=== PATIENT | male | born 1975 | race Caucasian/White ===

== ENCOUNTER 2017-12-15 10:35 | Inpatient (IN) | payer OTHER ==
[~2017-12-15 10:35] MED LIST: CYCL10TA29 PO; HYDR-3078 PO; LOR5 PO; MELO-150 PO; OND4 PO; ONDA4TAB PO
--- NOTE | 2017-12-15 10:38 | ER Report ---
History and Physical Time Seen By MD: 10:37 HPI/ROS CHIEF COMPLAINT: Periumbilical abdominal pain HISTORY OF PRESENT ILLNESS: Patient is a 42-year-old male here with complaints of periumbilical abdominal pain which started approximately 7:30 this morning and has been constant since time of onset. Patient denies prior history of similar pain. Patient denies prior history of abdominal surgeries. He does admit to dysuria. He did pass a bowel movement which was normal this morning. Patient denies fevers, chills, chest pain, shortness breath, nausea or vomiting. He attempted to urinate at time of arrival but was unable to produce urine. Patient is afebrile time of evaluation and hemodynamically stable. REVIEW OF SYSTEMS: Constitutional: No fever, no chills. Eyes: No discharge. ENT: No sore throat. Cardiovascular: No chest pain, no palpitations. Respiratory: No cough, no shortness of breath. Gastrointestinal: + periumbilical abdominal pain, no vomiting. Genitourinary: + decreased UO Musculoskeletal: No back pain. Skin: No rashes. Neurological: No headache. Allergies: Coded Allergies: No Known Drug Allergies (Verified , 12/15/17) Home Meds Reported Medications Escitalopram Oxalate (LEXAPRO) 20 Mg Tablet, 10 MG PO QDAY, TAB 12/15/17 Discontinued Reported Medications Ondansetron Hcl (Zofran) 4 Mg Tab, 4 MG PO 09/19/11 Acetaminophen/Hydrocodone (Lortab 5/500) 5 Mg/500 Mg Tab, 1 TAB PO Q6H 09/19/11 Cyclobenzaprine Hcl (FLEXERIL (OR EQUIV)) 10 Mg Tab, 10 MG PO 09/19/11 Ondansetron (Zofran Odt) 4 Mg/Udtablet Tab.rapdis, 4 MG PO Q6-8H Y, #10 0 Refills 02/27/10 Hydrocodone Bit/Acetaminophen (Hydrocodone-Apap 5-500 Mg Tab) 1 Each Tablet, 1 EACH PO Q4-6H Y, 0 Refills 30/10 Meloxicam (Mobic) 15 Mg Tablet, 15 MG PO DAILY Y, 0 Refills 30/ Hx Smoking: Yes Hx Substance Use Disorder: No Hx Alcohol Use: No Constitutional Vital Sign - Last 24 Hours 12/15/17 12/15/17 10:38 11:04 Temp 98.0 Pulse 65 Resp 22 B/P (MAP) 132/68 Pulse Ox 96 O2 Delivery Room Air O2 Flow Rate 3.0 Physical Exam General Appearance: The patient is alert, has no immediate need for airway protection and no signs of toxicity. Moderate distress secondary to pain Eyes: Pupils equal and round no pallor or injection. ENT, Mouth: Mucous membranes are moist. Respiratory: There are no retractions, lungs are clear to auscultation. Cardiovascular: Regular rate and rhythm. Gastrointestinal: Abdomen is soft and + tender in the periumbilical distribution, no masses, bowel sounds normal. Neurological: No focal neurological deficits Skin: Warm and dry, no rashes. Musculoskeletal: Neck is supple non tender. Extremities are nontender, nonswollen and have full range of motion. DIFFERENTIAL DIAGNOSIS: After history and physical exam differential diagnosis was considered for abdominal pain including but not limited to appendicitis, cholecystitis, gastritis and urinary tract infection. Medical Decision Making Data Points Result Diagram: 12/15/17 1049 12/15/17 1049 Laboratory Hematology Test 12/15/17 10:49 12/15/17 11:57 Red Blood Count 5.27 M/uL (4.00-5.60) Mean Corpuscular Volume 90.3 fL (80.0-96.0) Mean Corpuscular Hemoglobin 32.1 pg (26.0-33.0) Mean Corpuscular Hemoglobin Concent 35.5 g/dL (32.0-36.0) Red Cell Distribution Width 13.5 % (11.5-14.5) Mean Platelet Volume 8.6 fL (7.2-11.1) Neutrophils (%) (Auto) 75.6 % (39.4-72.5) Lymphocytes (%) (Auto) 15.5 % (17.6-49.6) Monocytes (%) (Auto) 5.6 % (4.1-12.4) Eosinophils (%) (Auto) 2.7 % (0.4-6.7) Basophils (%) (Auto) 0.6 % (0.3-1.4) Nucleated RBC Relative Count (auto) 0.0 /100WBC Neutrophils # (Auto) 7.1 K/uL (2.0-7.4) Lymphocytes # (Auto) 1.4 K/uL (1.3-3.6) Monocytes # (Auto) 0.5 K/uL (0.3-1.0) Eosinophils # (Auto) 0.2 K/uL (0.0-0.5) Basophils # (Auto) 0.1 K/uL (0.0-0.1) Nucleated RBC Absolute Count (auto) 0.00 K/uL Peripheral Blood Smear No Y/N Sodium Level 139 mmol/L (137-145) Potassium Level 4.5 mmol/L (3.5-5.0) Chloride Level 104 mmol/L (98-107) Carbon Dioxide Level 25 mmol/L (22-30) Blood Urea Nitrogen 16 mg/dl (9-21) Creatinine 0.90 mg/dl (0.66-1.25) Glomerular Filtration Rate Calc > 60.0 Random Glucose 106 mg/dl (75-110) Lactate 1.1 mmol/L (0.7-2.1) Calcium Level 9.7 mg/dl (8.4-10.2) Total Bilirubin 0.7 mg/dl (0.2-1.3) Aspartate Amino Transf (AST/SGOT) 27 U/L (0-35) Alanine Aminotransferase (ALT/SGPT) 20 U/L (0-56) Alkaline Phosphatase 70 U/L (0-126) C-Reactive Protein < 0.5 mg/dl (<1.0) Total Protein 7.0 g/dl (6.3-8.2) Albumin 4.4 g/dl (3.5-5.0) Lipase 48 U/L (23-300) Urine Color Yellow Urine Clarity Clear Urine pH 6.0 pH (4.8-9.5) Urine Specific [place] 1.010 Urine Protein Negative mg/dL (NEGATIVE) Urine Glucose (UA) Negative mg/dL (NEGATIVE) Urine Ketones Negative mg/dL (NEGATIVE) Urine Blood Negative (NEGATIVE) Urine Nitrite Negative (NEGATIVE) Urine Bilirubin Negative (NEGATIVE) Urine Urobilinogen 0.2 mg/dL (0.2-1.9) Urine Leukocyte Esterase Negative (NEGATIVE) Urine RBC 1 /HPF (0-2/HPF) Urine WBC <1 /HPF (0-5/HPF) Urine Squamous Epithelial Cells None /LPF (</=FEW) Urine Bacteria Negative /HPF (NONE-FEW) Urine Mucus None /HPF (NONE-FEW) Chemistry Test 12/15/17 10:49 12/15/17 11:57 White Blood Count 9.3 k/uL (4.5-11.0) Red Blood Count 5.27 M/uL (4.00-5.60) Hemoglobin 16.9 g/dL (14.0-18.0) Hematocrit 47.6 % (42.0-52.0) Mean Corpuscular Volume 90.3 fL (80.0-96.0) Mean Corpuscular Hemoglobin 32.1 pg (26.0-33.0) Mean Corpuscular Hemoglobin Concent 35.5 g/dL (32.0-36.0) Red Cell Distribution Width 13.5 % (11.5-14.5) Platelet Count 209 K/uL (150-450) Mean Platelet Volume 8.6 fL (7.2-11.1) Neutrophils (%) (Auto) 75.6 % (39.4-72.5) Lymphocytes (%) (Auto) 15.5 % (17.6-49.6) Monocytes (%) (Auto) 5.6 % (4.1-12.4) Eosinophils (%) (Auto) 2.7 % (0.4-6.7) Basophils (%) (Auto) 0.6 % (0.3-1.4) Nucleated RBC Relative Count (auto) 0.0 /100WBC Neutrophils # (Auto) 7.1 K/uL (2.0-7.4) Lymphocytes # (Auto) 1.4 K/uL (1.3-3.6) Monocytes # (Auto) 0.5 K/uL (0.3-1.0) Eosinophils # (Auto) 0.2 K/uL (0.0-0.5) Basophils # (Auto) 0.1 K/uL (0.0-0.1) Nucleated RBC Absolute Count (auto) 0.00 K/uL Peripheral Blood Smear No Y/N Glomerular Filtration Rate Calc > 60.0 Lactate 1.1 mmol/L (0.7-2.1) Calcium Level 9.7 mg/dl (8.4-10.2) Total Bilirubin 0.7 mg/dl (0.2-1.3) Aspartate Amino Transf (AST/SGOT) 27 U/L (0-35) Alanine Aminotransferase (ALT/SGPT) 20 U/L (0-56) Alkaline Phosphatase 70 U/L (0-126) C-Reactive Protein < 0.5 mg/dl (<1.0) Total Protein 7.0 g/dl (6.3-8.2) Albumin 4.4 g/dl (3.5-5.0) Lipase 48 U/L (23-300) Urine Color Yellow Urine Clarity Clear Urine pH 6.0 pH (4.8-9.5) Urine Specific [place] 1.010 Urine Protein Negative mg/dL (NEGATIVE) Urine Glucose (UA) Negative mg/dL (NEGATIVE) Urine Ketones Negative mg/dL (NEGATIVE) Urine Blood Negative (NEGATIVE) Urine Nitrite Negative (NEGATIVE) Urine Bilirubin Negative (NEGATIVE) Urine Urobilinogen 0.2 mg/dL (0.2-1.9) Urine Leukocyte Esterase Negative (NEGATIVE) Urine RBC 1 /HPF (0-2/HPF) Urine WBC <1 /HPF (0-5/HPF) Urine Squamous Epithelial Cells None /LPF (</=FEW) Urine Bacteria Negative /HPF (NONE-FEW) Urine Mucus None /HPF (NONE-FEW) Urinalysis Test 12/15/17 11:57 Urine Color Yellow Urine Clarity Clear Urine pH 6.0 pH (4.8-9.5) Urine Specific [place] 1.010 Urine Protein Negative mg/dL (NEGATIVE) Urine Glucose (UA) Negative mg/dL (NEGATIVE) Urine Ketones Negative mg/dL (NEGATIVE) Urine Blood Negative (NEGATIVE) Urine Nitrite Negative (NEGATIVE) Urine Bilirubin Negative (NEGATIVE) Urine Urobilinogen 0.2 mg/dL (0.2-1.9) Urine Leukocyte Esterase Negative (NEGATIVE) Urine RBC 1 /HPF (0-2/HPF) Urine WBC <1 /HPF (0-5/HPF) Urine Squamous Epithelial Cells None /LPF (</=FEW) Urine Bacteria Negative /HPF (NONE-FEW) Urine Mucus None /HPF (NONE-FEW) EKG/Imaging Imaging Please see radiology report ED Course/Re-evaluation ED Course Patient is a 42-year-old male here with complaints of periumbilical abdominal pain which started at approximately 7:30 this morning and has been constant. Patient denies prior history of abdominal surgeries or similar pain. Patient is afebrile, hemodynamically stable complaining of decreased urine output. He did pass a bowel movement this morning which was normal per patient report. Patient received a liter of fluid, Dilaudid for analgesia. CT abdomen and pelvis was completed and identified a small bowel obstruction with concern for possible internal hernia versus volvulus. I discussed the patient with Dr. Blanchard who accepted the patient to his service. 2nd liter of fluid this time lactated Ringer's and was placed on maintenance fluid 125 milliliters per hour. 2nd dose of Dilaudid was given for analgesia. I updated the patient regarding the course and plan and he voiced understanding. Patient remained stable throughout ED course. Decision to Disposition Date: Dec 15, 2017 Decision to Disposition Time: 12:44 Depart Departure Latest Vital Signs Vital Signs Date Time Temp Pulse Resp B/P (MAP) Pulse Ox O2 Delivery O2 Flow Rate FiO2 12/15/17 11:04 3.0 12/15/17 10:38 98.0 65 22 132/68 96 Room Air Impression: Primary Impression: Small bowel obstruction Condition: Condition Unchanged Disposition: Admitted from ER DEB NUNEZ DO Dec 15, 2017 10:37
[2017-12-15] MEDS ORDERED: NS(*) 0.9% 1000 ML BAG 1,000 ML IV ONE (10:44)
[2017-12-15] MEDS ORDERED: HYDROMORPHONE HCL 1 MG/ML SYRINGE IVP ONE ×2 (10:45→12:35)
[2017-12-15] MEDS ORDERED: ESCI20TA38 PO (10:48)
[2017-12-15] MEDS ORDERED: ONDANSETRON 4 MG/2 ML VIAL ONE (10:56)
[2017-12-15] MEDS ORDERED: ONDANSETRON 4 MG/2 ML VIAL IVP ONE (11:00)
[2017-12-15 11:04] LABS: PLATELET COUNT, AUTOMATED 209 K/uL (150-450)
[2017-12-15] MEDS ORDERED: IOPAMIDOL 76% 75 ML INFUS BTL 75 ML ONE (11:04)
[2017-12-15] MEDS ORDERED: LR(*) 1000 ML BAG 1,000 ML IV ONE (12:40)
--- NOTE | 2017-12-15 12:44 | RADIOLOGY IMAGING REPORT ---
FACILITY: [facility] PATIENT NAME: Atul Le : 1975 MR: [id number] V: [id number] EXAM DATE: ORDERING PHYSICIAN: DEB NUNEZ TECHNOLOGIST: Location: [facility] Patient: Atul Le : 1975 Visit/Account:[id number] Date of Sevice: 12/15/2017 ABDOMEN/PELVIS WITH CONTRAST Additional pertinent History: none significant TECHNIQUE: Spiral scan was through the abdomen and pelvis during injection of nonionic iodinated in travenous contrast. Contrast: 75 mL of IV Isovue 320. COMPARISON STUDIES: None One of the following dose optimization techniques was utilized in the performance of this exam: Autom ated exposure control; adjustment of the mA and/or kV according to the patient's size; or use of an i terative reconstruction technique. Specific details can be referenced in the facility's radiology C T exam operational policy. FINDINGS: Liver / biliary: Liver cysts. Gallbladder unremarkable Pancreas: negative Spleen: negative Adrenal glands: negative Kidneys / retroperitoneum: negative Pelvic structures: negative Bowel / peritoneum / mesenteries: There is a small bowel obstruction. Decompressed January and termin al ileal loops suggest a closed loop obstruction. There is twisting of mesenteric vessels in the loop s of dilated small bowel between images 90 through 109 series 2. The vessels become less distinctly o pacified beyond that. A loop of bowel in the deep pelvis (images 109 through 115) which has wall bebo a and indistinctness to the enhancement suggesting developing ischemia. Jasmin mesentery in the area o f bowel loop. This is also at a point of adjacent small bowel loops that appear to be in a compressed twisting motion. Vessels: negative Pelvis: The bladder has increased attenuation. Hounsfield units of 41. Musculoskeletal / Body wall: negative Lymph node assessment: negative Lower chest: negative IMPRESSION: 1. Small bowel obstruction with features suggesting a closed-loop obstruction from a volvulus or inte rnal hernia with a loop of edematous somewhat ischemic appearing bowel long the inferior epicenter of the twisting. Small amount of free fluid. 2. Bladder with increased attenuation of uncertain significance. Results were discussed with DEB NUNEZ at 12/15/2017 12:38 PM. Report Dictated By: Lex Engle MD at 12/15/2017 11:52 AM Report E-Signed By: Lex Engle MD at 12/15/2017 12:39 PM WSN:[id number]
[2017-12-15] MEDS ORDERED: ESC10 PO (13:36)
[2017-12-15 13:37] VITALS: BP 126/88
[2017-12-15] MEDS: HYDROmorphone HCL 2 MG/ML SDV IVP PRN ×3 (15:27→21:32)
[2017-12-15] MEDS: LR(*) 1000 ML BAG 1,000 ML IV PRN ×2 (15:28→23:40)
--- NOTE | 2017-12-15 16:15 | HISTORY AND PHYSICAL ---
DATE OF ADMISSION: December 15, 2017 CHIEF COMPLAINT Abdominal pain. HISTORY OF PRESENT ILLNESS This is a 42-year-old male who presented to the emergency department a few hours ago. He reports that this morning shortly after awakening he experienced the acute onset of lower abdominal pain, poorly localized but generally in the mid abdomen, and now more so in the lower part of the central abdomen. Pain progressed over a period of hours. It was described as constant, not spastic. It was associated with nausea which the patient felt was secondary to the pain itself. He had a bowel movement after the pain started and it improved the pain a little bit, but overall it made little difference. He has had no prior occurrences. He reports the pain is worse when he is lying supine and is somewhat better when he sits bending forward. Patient denies any changes in bowel habits and reports no blood noted in the stool. He has had no food today , rather has only taken coffee, but he reports he is quite hungry right now. PAST MEDICAL HISTORY * Depression/anxiety. Patient has been taking an antidepressant for 6-9 months with notable improvement. * Rheumatoid arthritis. For this the patient is taking a "bioidentical hormone replacement." He is also taking Mobic on a p.r.n. basis. PAST SURGICAL HISTORY * Tonsillectomy. * Right foot surgery for a fracture. * Left hand cystic excision. * Extraction of wisdom teeth. ALLERGIES No known drug allergies. CURRENT MEDICATIONS * Mobic p.r.n. * Hormone replacement therapy, exact type unspecified. SOCIAL HISTORY Tobacco use: Patient has a 32 pack-year smoking history. Alcohol use: Patient admits to one drink per day on average, but does not drink more heavily on weekends. Drug use: He on rare occasions will use marijuana, most often in the form of a THC pen. FAMILY HISTORY Positive for CVA, diabetes mellitus, hypertension and bone cancer. REVIEW OF SYSTEMS CONSTITUTIONAL: No fevers. ENT/MOUTH: No dysphagia. RESPIRATORY: No cough or shortness of breath. CARDIOVASCULAR: No chest pain. GASTROINTESTINAL: As noted above. GENITOURINARY: No gross hematuria. NEUROLOGICAL: There is some tingling in the fingers with cold weather, which patient attributes to his frequent use of power tools. Otherwise no numbness noted. PSYCHIATRIC: Anxiety and depression as noted above. MUSCULOSKELETAL: No joint swelling noted. HEMATOLOGICAL: No blood coagulopathy. ENDOCRINE: No heat or cold intolerance. PHYSICAL EXAMINATION GENERAL: This is a well-developed, well-nourished, very healthy-looking middle- aged male in no acute distress. VITAL SIGNS: Temperature 98.7, pulse rate 64, respiratory rate 12, blood pressure is 126/88, O2 saturation is 93% on 3L. Previously the patient's O2 saturation had been 98% on room air. HEAD/NECK: Head is atraumatic and normocephalic. Neck exam is unremarkable, thyroid is of normal size and texture. EYES: Pupils are equally round. They are somewhat constricted, but do show some slight reaction to light. The sclerae are anicteric. Conjunctivae are not pale. ENT/MOUTH: External ears and nose appear normal. Oropharynx is unremarkable. RESPIRATORY: The lungs are clear to auscultation bilaterally. CARDIOVASCULAR: The heart has a regular rate and rhythm without murmur or tachycardia. ABDOMEN: Bowel sounds are all positive and normal in quality. The abdomen is flat. It is soft and there is marked tenderness in the left lower quadrant and somewhat less tenderness in the suprapubic area and right lower quadrant with some guarding noted. GENITOURINARY: No growing bulges are noted. INTEGUMENTARY: The skin is clear, warm and dry. Nails appear normal. EXTREMITIES: Limbs are without deformities. The legs have no edema. NEUROLOGICAL: Hand autotransfusionist and equal and strong bilaterally. PSYCHIATRIC: The patient is awake and alert. He is oriented. He responds appropriately throughout the exam. LABORATORY DATA Normal white blood cell count. Other labs are grossly within normal limits. RADIOLOGICAL STUDIES A CT scan of the abdomen and pelvis was done. The radiologist feels that there is a single loop of small bowel which appears to be twisted and is felt to be the source of the patient's symptoms. ASSESSMENT Partial small bowel obstruction. PLAN Bowel rest. IV fluids. We will reassess the patient later. I have discussed with him the frequent course of this problem which is for the partial obstruction to resolve itself with bowel rest, but I have discussed the possibility that we might need to do an operation later on if symptoms do not improve and certainly if they worsen. He voices understanding and agreement with this plan. JENNA
[2017-12-15] MEDS ORDERED: NICOTINE CARTRIDGE 1 EA PO PRN (17:15)
[2017-12-15] MEDS: NICOTINE INH SYSTEM 10 MG/INH INH PRN (17:21)
[2017-12-15 21:18] VITALS: BP 109/75
[2017-12-15 23:21] VITALS: BP 104/57
[2017-12-16] MEDS: HYDROmorphone HCL 2 MG/ML SDV IVP PRN ×2 (02:43→05:17)
[2017-12-16 02:45] VITALS: BP 114/76
[2017-12-16] MEDS: NICOTINE INH SYSTEM 10 MG/INH INH PRN (02:53)
[2017-12-16 06:43] LABS: PLATELET COUNT, AUTOMATED 159 K/uL (150-450)
[2017-12-16 07:25] VITALS: BP 114/86
[2017-12-16] MEDS: LR(*) 1000 ML BAG 1,000 ML IV PRN (07:26)
[2017-12-16] MEDS ORDERED: ONDANSETRON 4 MG/2 ML VIAL IVP PRN (08:35)
[2017-12-16] MEDS ORDERED: ONDANSETRON 4 MG/2 ML VIAL ONE (08:42)
--- NOTE | 2017-12-16 10:19 | RADIOLOGY IMAGING REPORT ---
FACILITY: [facility] PATIENT NAME: Atul Le : 1975 MR: [id number] V: [id number] EXAM DATE: ORDERING PHYSICIAN: SHWETA SHEETS TECHNOLOGIST: Location: [facility] [place] Patient: Atul Le : 1975 Visit/Account:[id number] Date of Sevice: 12/16/2017 Exam type: ACUTE ABDOMEN SERIES 3 VIEW History: abd pain, tenderness Comparison: CT scan 12/15/2017. Findings: Both lungs are well-expanded and clear. There is no focal infiltrate, pleural effusion or pneumothora x. There may be a scar overlying the left midlung. Heart size is normal. The bowel gas pattern demonstrates some mild constipation. No definitive obstruction by plain film ra diography. Reviewed the prior CT scan demonstrated fluid-filled loops of small bowel which are genera lly not appreciated by plain film radiography. The osseous structures are unremarkable. IMPRESSION: 1. No acute cardiopulmonary disease. 2. Constipation. No visualized distended bowel loops by plain film radiography. Please note the prior CT scan demonstrated fluid-filled loops of dilated small bowel which are generally not appreciated b y plain film radiography. If there is clinical concern for bowel obstruction, recommend a small bowel follow-through. Report Dictated By: Hai Sher MD at 12/16/2017 10:12 AM Report E-Signed By: Hai Sher MD at 12/16/2017 10:15 AM WSN:[id number]
[2017-12-16] MEDS ORDERED: ACETAMINOPHEN 325 MG TAB PO PRN (11:30)
--- NOTE | 2017-12-16 12:18 | Medical Nutrition Therapy ---
Nutrition Anthropometrics Weight (Pounds): 152 Weight (Calculated Kilograms): 68.946 Sumeet Nutrition Score: Adequate Sumeet Nutrition Risk Score: 21 Dietary Referral Nutrition Risk Factors: Nutrition Risk Comment: Nutritional Diagnosis Nutritional Risk Acuity 2: GI Malabsorption (partial SBO) Nutritional Risk Acuity 3: Nausea Nutritional Acuity: 2-Moderate Nutrition Diagnosis: Altered GI Function Nutrition Etiology: Physiological Causes Nutrition Problem/Etiology/Sym: AEB dx partial SBO Energy Requirement: 2070 (30 kcla/kg) Protein Requirement: 69 (1gm/kg) Fluid Requirement: 2070 (30 ml/kg) Diet Type: NPO (Nothing by Mouth) Nutrition Intervention: Incr diet as tolerated Nutrition Monitoring & Eval Nutrition Goals: Eat 75-100% Meal RD Patient Assessment Time: [address] Assessment Type: RD Assessment Patient Nutrition Acuity: 2-Moderate Follow Up Date: Dec 19, 2017 Nutritional Comment: 12/16 Pt admitted with partial SBO. Pt curretnly NP0. Pt is reporting nausea. Alb 4.4. Will cont to monito. JANINA MOHR Dec 16, 2017 12:18
--- NOTE | 2017-12-16 14:14 | PROGRESS NOTE ---
DATE: December 16, 2017 SUBJECTIVE Patient reports that he feels the same this morning as he did yesterday. He is still experiencing the lower abdominal pain. He did well through the night, but needed another injection of Dilaudid this morning, almost three hours ago. He reports again that he is very hungry. PHYSICAL EXAMINATION VITAL SIGNS: Temperature is 97.7 orally, pulse rate is 56, respiratory rate is 16, blood pressure is 114/86, pulse ox is 91% on room air. GENERAL: Patient is resting quietly in bed in no acute distress. RESPIRATORY: Lungs are clear to auscultation bilaterally. CARDIOVASCULAR: The heart rate has a regular rate and rhythm. There is no tachycardia. ABDOMEN: Bowel sounds are positive. The abdomen is soft. If is flat. There is tenderness in the left upper quadrant, the left lower quadrant, and the mid lower abdomen with some guarding. LABORATORY STUDIES WBC this morning is 8.3 with a normal differential, hemoglobin is 14.2, and hematocrit is 40.7. Platelets are 159,000. The BMP this morning is all within normal limits. ASSESSMENT Patient appears to be quite stable; however, the persistent pain is of concern. PLAN Abdominal x-ray series this morning. Patient may yet need to undergo exploratory laparotomy/exploratory laparoscopy to address persistent obstruction if so indicated by x-ray findings. JENNA
--- NOTE | 2017-12-16 15:05 | DISCHARGE SUMMARY ---
DATE OF ADMISSION: December 15, 2017 DATE OF DISCHARGE: December 16, 2017 ADMISSION DIAGNOSIS Partial small-bowel obstruction. DISCHARGE DIAGNOSIS Partial small-bowel obstruction, resolved. SURGEON Stevenson Blanchard MD PROCEDURES None. HISTORY OF PRESENT ILLNESS This 42-year-old male presented to the Emergency Department complaining of several hours of unrelenting and progressing lower abdominal pain. There were no prior occurrences. On exam, the patient had tenderness with guarding across his lower abdomen, more so in the middle. The abdomen was noted to be not distended. Laboratory studies were within normal limits. CT scan showed a single loop of small bowel that appeared to be twisted with a question of some ischemic changes in this loop. PAST MEDICAL HISTORY 1. Depression/anxiety. 2. Rheumatoid arthritis. PAST SURGICAL HISTORY 1. Tonsillectomy. 2. Right foot surgery for a fracture. 3. Left hand cyst excision. 4. Extraction of wisdom teeth. HOME MEDICATIONS 1. Mobic p.r.n. 2. Hormone replacement therapy of unspecified type, nonprescription. HOSPITAL COURSE The patient was treated with bowel rest and IV fluids. The rest of the day, he required periodic Dilaudid to help control the pain. Through that night, he did fairly well, again needed some Dilaudid early the next morning. However, after that, the pain improved considerably. When I first saw him on that second day, he still was having some pain along with the lower abdominal tenderness with guarding. His repeat lab studies were within normal limits. Shortly after my exam, the patient had a bowel movement with some improvement of pain. He then also had a single episode of vomiting. After all this, the pain completely resolved and the abdomen showed absolutely no tenderness on exam. It is noted that the patient was hungry from the time of admission. With resolution of symptoms, he was started on clear liquids, which he has tolerated well. He was advanced to a regular diet. DISPOSITION The patient has been discharged home. No followup will be needed unless symptoms recur. [facility] SYSTEM[facility]helbie
== END 2017-12-16 15:25 | disposition home or self-care (01) | DRG 390 ==
LOC: ER 10:44 → MED 13:18
PROVIDERS: ADMIT Surgery; ATTEND Surgery
DX: K56.600 Partial intestinal obstruction, unspecified as to cause (principal); F41.8 Other specified anxiety disorders; M06.9 Rheumatoid arthritis, unspecified; Z87.891 Personal history of nicotine dependence
CPT/HCPCS: 36415; 74022; 74177; 81001; 82040; 82247; 82310; 82374; 82435; 82565; 82947; 83605; 83690; 84075; 84132; 84155; 84295; 84450; 84460; 84520; 85025; 86140; J1170; J2405; J7030; J7120; Q9967